=== PATIENT | female | born 1980 | race Caucasian/White ===

== ENCOUNTER 2019-05-09 19:37 | Emergency (ER) | payer SELFPAY ==
--- OUTSIDE RECORDS SUMMARY | 2019-05-09 19:38 | XMS REPORT ---
:1980 [facility] Address [address] [place] [address] Dr. Grider [address] [place] [id number] Care Team Providers Name Role Phone Unavailable Unavailable Unavailable Problems This patient has no known problems. Allergies, Adverse Reactions, Alerts This patient has no known allergies or adverse reactions. Medications This patient has no known medications.
--- NOTE | 2019-05-09 20:31 | RAD REPORT ---
EXAM DESCRIPTION: RAD - Chest Single View - 05/09/2019 8:25 pm CLINICAL HISTORY: CHEST PAIN Chest pain. COMPARISON: <Comparisons> FINDINGS: Portable technique limits examination quality. The lungs are grossly clear. The heart is normal in size. No displaced fractures. IMPRESSION: No acute intrathoracic process suspected.
[2019-05-09 20:34] LABS: Absolute Lymphocytes (CBC) 3.4 K/uL (0.7-4.9); Basophils % 0.7 % (0-1.3); Eosinophils % 0.7 % (0-4.4); Hematocrit 40.2 % (36.0-45.0); Lymphocytes % 34.6 % (15.3-44.8); MPV 7.3 fL (7.6-11.3)
[2019-05-09 20:46] LABS: BUN Blood Urea Nitrogen 10 mg/dL (7-18); Bicarbonate 25 mmol/L (21-32); Glucose Level 98 mg/dL (74-106); Potassium 3.4 mmol/L (3.5-5.1); Sodium Level 140 mmol/L (136-145); Troponin (Emerg Dept Use Only) < 0.02 ng/mL (0.0-0.045)
--- NOTE | 2019-05-09 21:05 | ER ---
Nurse's Notes [facility] Name: Alida Dupree Age: 39 yrs Sex: Female : 1980 Arrival Date: 05/09/2019 Time: 19:37 Bed 15 Private MD: Diagnosis: Chest pain, unspecified;Palpitations Presentation: 05/09 19:46 Presenting complaint: Patient states: epigastric and chest pain with SOB since Monday. ak1 pt stated she was seen at [facility] ER Monday and discharged. Transition of care: patient was not received from another setting of care. Onset of symptoms is unknown. Risk Assessment: Do you want to hurt yourself or someone else? Patient reports no desire to harm self or others. Initial Sepsis Screen: Does the patient meet any 2 criteria? No. Patient's initial sepsis screen is negative. Does the patient have a suspected source of infection? No. Patient's initial sepsis screen is negative. Care prior to arrival: None. 19:46 Method Of Arrival: Ambulatory ak1 19:46 Acuity: REEMA 3 ak1 Triage Assessment: 19:48 General: Appears in no apparent distress. Behavior is calm, cooperative. Pain: ak1 Complains of pain in xyphoid area and mid-sternal area. 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 - Social history:: Smoking status: Patient uses tobacco products, smokes one pack cigarettes per day. - Ebola Screening: : No symptoms or risks identified at this time. Screenin:20 Abuse screen: Denies threats or abuse. Denies injuries from another. Nutritional aj screening: No deficits noted. Tuberculosis screening: No symptoms or risk factors identified. Fall Risk None identified. Assessment: 20:20 General: Appears in no apparent distress. comfortable, Behavior is calm, cooperative, aj appropriate for age. Pain: Complains of pain in mid-sternal area Pain does not radiate. Pain began gradually. Cardiovascular: Reports chest pain, Capillary refill < 3 seconds in bilateral fingers Patient's skin is warm and dry. Respiratory: Airway is patent Respiratory effort is even, unlabored, Respiratory pattern is regular, symmetrical. Derm: Skin is intact, is healthy with good turgor, Skin is pink, warm \T\ dry. normal. Vital Signs: 19:48 BP 148 / 90; Pulse 81; Resp 16; Temp 98.2; Pulse Ox 100% on R/A; Weight 72.57 kg (R); ak1 Height 5 ft. 2 in. (157.48 cm) (R); Pain 4/10; 20:20 BP 137 / 91; Pulse 75; Resp 16; Pulse Ox 99% on R/A; aj 19:48 Body Mass Index 29.26 (72.57 kg, 157.48 cm) ak1 ED Course: 19:37 Patient arrived in ED. rg4 19:47 Triage completed. ak1 19:48 Arm band placed on Patient placed in an exam room, on a stretcher, on radiation monitor, ak1 on pulse oximetry, Patient notified of wait time. EKG completed in triage. Results shown to MD. 19:54 Kell Flower, RN is Primary Nurse. aj 19:54 Abelino Sainz MD is Attending Physician. gs 20:20 Patient has correct armband on for positive identification. Pulse ox on. NIBP on. aj 20:20 Inserted saline lock: 20 gauge in right antecubital area, using aseptic technique. aj Blood collected. 20:26 XRAY Chest (1 view) In Process Unspecified. EDMS 20:59 Toribio Fisher MD is Referral Physician. Administered Medications: No medications were administered Outcome: 21:04 Discharge ordered by . gs 21:31 Patient left the ED. aj Signatures: Dispatcher [employer] EDMS Kell Flower RN RN aj Krenek, Amber RN Emerita Barnhart [facility] Abelino Sainz MD MD
--- NOTE | 2019-05-09 21:05 | EDPHYS ---
Physician Documentation [facility] Name: Alida Dupree Age: 39 yrs Sex: Female : 1980 Arrival Date: 05/09/2019 Time: 19:37 Bed 15 Private MD: ED Physician Abelino Sainz HPI: 05/09 20:51 This 39 yrs old Female presents to ER via Ambulatory with complaints of Chest gs Pain. 20:51 The patient or guardian reports chest pain that is located primarily in the anterior gs chest wall. Onset: yesterday. The pain does not radiate. Associated signs and symptoms: Pertinent positives: shortness of breath. The chest pain is described as a heaviness. Duration: The patient or guardian reports multiple episodes, that are intermittent, that wax and wane, with no pattern, the episodes last approximately 5 minute(s). Modifying factors: The symptoms are alleviated by nothing. the symptoms are aggravated by nothing. Severity of pain: At its worst the pain was moderate in the emergency department the pain has resolved. The patient has experienced similar episodes in the past, a few times. The patient has been recently seen by a physician: outside ed. also main issue this occurs when having palpitations, says fast heart rate up to 130's. REGISTERED NURSE HH CASE MANAGER: 19:48 LMP N/A - depo injections ak1 Historical: - Allergies: 19:48 Percocet; ak1 - Home Meds: 19:48 Synthroid Oral [Active]; ak1 - PMHx: 19:48 Endometrosis; Hypothyroidism; ak1 - PSHx: 19:48 ; left shoulder sx 02/2019; ak1 - Immunization history:: Adult Immunizations unknown. - Social history:: Smoking status: Patient uses tobacco products, smokes one pack cigarettes per day. - Ebola Screening: : No symptoms or risks identified at this time. ROS: 20:51 All other systems are negative. gs Exam: 20:51 Head/Face: Normocephalic, atraumatic. Eyes: Pupils equal round and reactive to light, gs extra-ocular motions intact. Lids and lashes normal. Conjunctiva and sclera are non-icteric and not injected. Cornea within normal limits. Periorbital areas with no swelling, redness, or edema. ENT: Nares patent. No nasal discharge, no septal abnormalities noted. Tympanic membranes are normal and external auditory canals are clear. Oropharynx with no redness, swelling, or masses, exudates, or evidence of obstruction, uvula midline. Mucous membranes moist. Neck: Trachea midline, no thyromegaly or masses palpated, and no cervical lymphadenopathy. Supple, full range of motion without nuchal rigidity, or vertebral point tenderness. No Meningismus. Chest/axilla: Normal chest wall appearance and motion. Nontender with no deformity. No lesions are appreciated. Cardiovascular: Regular rate and rhythm with a normal S1 and S2. No gallops, murmurs, or rubs. Normal PMI, no JVD. No pulse deficits. Respiratory: Lungs have equal breath sounds bilaterally, clear to auscultation and percussion. No rales, rhonchi or wheezes noted. No increased work of breathing, no retractions or nasal flaring. Abdomen/GI: Soft, non-tender, with normal bowel sounds. No distension or tympany. No guarding or rebound. No evidence of tenderness throughout. Back: No spinal tenderness. No costovertebral tenderness. Full range of motion. Skin: Warm, dry with normal turgor. Normal color with no rashes, no lesions, and no evidence of cellulitis. MS/ Extremity: Pulses equal, no cyanosis. Neurovascular intact. Full, normal range of motion. Neuro: Awake and alert, GCS 15, oriented to person, place, time, and situation. Cranial nerves II-XII grossly intact. Motor strength 5/5 in all extremities. Sensory grossly intact. Cerebellar exam normal. Normal gait. 20:51 Constitutional: The patient appears alert, awake. 20:51 ECG was reviewed by the Attending Physician. Vital Signs: 19:48 BP 148 / 90; Pulse 81; Resp 16; Temp 98.2; Pulse Ox 100% on R/A; Weight 72.57 kg (R); ak1 Height 5 ft. 2 in. (157.48 cm) (R); Pain 4/10; 20:20 BP 137 / 91; Pulse 75; Resp 16; Pulse Ox 99% on R/A; aj 19:48 Body Mass Index 29.26 (72.57 kg, 157.48 cm) ak1 MDM: 20:00 Patient medically screened. gs 20:51 Differential diagnosis: abnormal EKG, coronary artery disease chest wall pain, gs afib,aflutter,s tach. explained will need to follow up with cards for possible telemonitor. 21:07 HEART Score: History: Slightly Suspicious (0), ECG: Normal (0), Age: < or = 45 years gs (0), Risk Factors: 1 or 2 risk factors (1), Troponin: < or = 1 x Normal Limit (0). Data reviewed: vital signs, nurses notes, lab test result(s), EKG, radiologic studies. Counseling: I had a detailed discussion with the patient and/or guardian regarding: the historical points, exam findings, and any diagnostic results supporting the discharge/admit diagnosis, the presence of at least one elevated blood pressure reading (>120/80) during this emergency department visit. Response to treatment: the patient's symptoms have resolved after treatment, the patient's condition has returned to base line. Special discussion: I have referred the patient to see his PCP for further evaluation of high blood pressure. 05/09 19:58 Order name: Basic Metabolic Panel; Complete Time: 20:50 05/09 19:58 Order name: CBC with Diff; Complete Time: 20:50 05/09 19:58 Order name: Troponin (emerg Dept Use Only); Complete Time: 20:50 05/09 19:58 Order name: XRAY Chest (1 view); Complete Time: 20:36 05/09 21:04 Order name: TSH 05/09 21:31 Order name: T4 Free [facility] 05/09 19:58 Order name: EKG; Complete Time: 19:59 05/09 19:58 Order name: Cardiac monitoring; Complete Time: 20:22 05/09 19:58 Order name: EKG - Nurse/Tech; Complete Time: 20:22 05/09 19:58 Order name: IV Saline Lock; Complete Time: 20:22 05/09 19:58 Order name: Labs collected and sent; Complete Time: 20:22 05/09 19:58 Order name: O2 Per Protocol; Complete Time: 20:23 05/09 19:58 Order name: O2 Sat Monitoring; Complete Time: 20:23 gs EC:51 Rate is 83 beats/min. Rhythm is regular. MT interval is normal. QRS interval is normal. gs T waves are Normal. No ST changes noted. Clinical impression: Normal ECG. Interpreted by me. Administered Medications: No medications were administered Disposition: 05/09/19 21:04 Discharged to Home. Impression: Chest pain, unspecified, Palpitations. - Condition is Stable. - Discharge Instructions: Nonspecific Chest Pain, Palpitations, Managing Your Hypertension. - Medication Reconciliation Form, Thank You Letter, Antibiotic Education, Prescription Opioid Use form. - Follow up: Toribio Fisher MD; When: 1 - 2 days; Reason: Re-evaluation by your physician. Signatures: Dispatcher [employer] EDKell Jeffries RN RN aj Kathi Nair RN RN ak1 Abelino Sainz MD MD gs Corrections: (The following items were deleted from the chart) 21:31 21:04 05/09/2019 21:04 Discharged to Home. Impression: Chest pain, unspecified; aj Palpitations. Condition is Stable. Forms are Medication Reconciliation Form, Thank You Letter, Antibiotic Education, Prescription Opioid Use. Follow up: Toribio Fisher; When: 1 - 2 days; Reason: Re-evaluation by your physician. gs
[2019-05-09 21:30] LABS: Thyroid Stimulating Hormone 4.51 uIU/mL (0.360-3.740)
--- NOTE | 2019-05-10 07:34 | EKG ---
Test Date: 2019-05-09 Test Time: 19:46:55 Diet Consultant: AG3 MEASUREMENT RESULTS: Intervals: Rate: 83 DC: 156 QRSD: 74 QT: 352 QTc: 413 [place]: P: 42 DC: 156 QRS: 56 T: 42 INTERPRETIVE STATEMENTS: Normal sinus rhythm Normal ECG Compared to ECG 08/27/2015 19:07:44 Sinus bradycardia no longer present Electronically Signed On 05-10-19 07:33:54 CDT by Doug Olivares
== END 2019-05-09 21:31 | disposition home or self-care (01) ==
LOC: ER 19:37
DX: R00.2 Palpitations (principal); E03.9 Hypothyroidism, unspecified; F17.210 Nicotine dependence, cigarettes, uncomplicated
CPT/HCPCS: 36415; 71045; 80048; 84439; 84443; 84484; 85025; 93005; 99284

== ENCOUNTER 2022-03-02 22:24 | Emergency (ER) | payer OTHER, SELFPAY ==
--- OUTSIDE RECORDS SUMMARY | 2022-03-02 22:28 | XMS REPORT | Continuity of Care Document ---
:1980 Author Organization [facility] t Address [address] [place] [address] Dr. [address] [place] [address] Care Team Providers Name Role Phone PCP, DOES NOT HAVE A Primary Care Physician Unavailable Melinda GALAN Attending Clinician Unavailable Daniella Zamora MD Attending Clinician Codey HARRIS Attending Clinician Jl Villegas Attending Clinician Maile JUDD Attending Clinician Unavailable Binta HARRIS S Attending Clinician Leona PRESCOTT Attending Clinician Codey HARRIS Admitting Clinician Maile JUDD Admitting Clinician Unavailable Payers Payer Name Policy Type Policy Number Effective Date Expiration Date S ourmayelin Advance Directives Directive Decision Effective Termination Comments Source Date Date Healthcare Agents on N/A [facility] ersity FileNameRelationshipHealthcare [facility] Agent Medical RelationshipCommunicationMer[facility] Hospital[facility] [phone] (Home) Problems Condition Condition Condition Status Onset Resolution Last Treating Co mments Source Name Details Category Date Date Treatment Clinician Date Chest pain Chest pain Disease Active 2020-10 U nivers 0-05 ity of 00:00: [address] Abdominal Abdominal Disease Active Uni vers pain pain 6-07 ity of 00:00: [address] Obesity Obesity Disease Active Univers (BMI (BMI 6-07 ity of 30-39.9) 30-39.9) 00:00: [place] 00 Medical Branch Pelvic Pelvic Disease Active 2016-10 Univers pain pain 0-10 ity of 00:00: Medical Branch Well woman Well woman Disease Active U nivers exam exam 7 ity of 00:00: Medical Branch Other Other Disease Active Univers general general 7- [place] of counseling counseling [place] and advice and advice 00 Wv dical for for Branch contracept contracept lon lon management management Irregular Irregular Disease Active Uni vers menstrual menstrual 7-19 ity of cycle cycle 00:00: [place] [facility] BV BV Disease Active Univers (bacterial (bacterial 7-19 it y of vaginosis) vaginosis) [place] Acute Acute Disease Active Univers tonsilliti tonsilliti -19 it y of s s 00:00: Medical Branch Tubal Tubal Disease Active Univers ligation ligation 07 ity of status status 00:00: Medical Branch History of History of Disease Active U nivers stroke stroke 07 ity of 00:00: Medical Branch Thyroid Thyroid Disease Active Univers disease disease 03-05 ity of 00:00: Medical Branch Overweight Overweight Disease Active Overview : Univers 03-05 Formattin ity of 00:00: g of this 00 note Medical might be Branch different from the original. ICD10 Diagnosis Term Manager Qa Utility Tobacco Tobacco Disease Active Univers use use 07 ity of disorder disorder 00:00: Medical Branch Tubal Tubal Disease Active Univers ligation ligation 5-07 ity of status status 00:00: Medical Branch Allergies, Adverse Reactions, Alerts Allergy Allergy Status Severity Reaction(s) Onset Inactive Treating Comm ents Source Name Type Date Date Clinician SULFA Drug Active N/V Univers (SULFONA Class 5-17 ity of MIDE 00:00: [place] ANTIBIOT 00 Medical ICS) Branch Sulfa Propensi Active Nausea Univers (Sulfona ty to and/or 5-17 ity of mide adverse Vomiting 00:00: [place] Antibiot reaction 00 Medica l ics) s Branch ACETAMIN DRUG Active Other-Cmnt 2018-10 Univ ers OPHEN INGREDI 1-30 ity of 00:00: [place] 00 Medical Branch Acetamin Propensi Active Other - See 2018-10 Makes U nivers ophen ty to comments 30 liver ity of adverse 00:00: enzymes [place] reaction 00 elevate Medical s Branch DEXTROAM DRUG Active Hives 2017-10 Univers PHETAMIN 0-20 ity of E-AMPHET 00:00: [place] AMINE 00 Medical Branch Dextroam Propensi Active Hives 2017-10 Univer s phetamin ty to 0-20 ity of e-Amphet adverse 00:00: [place] amine reaction 00 Medical s Branch OXYCODON DRUG Active ITCHING 2008-10 Univers E-ACETAM 1-19 ity of INOPHEN 00:00: [place] 00 Medical Branch Oxycodon Propensi Active Itching 2008-10 Unive rs e-Acetam ty to 1-19 ity of inophen adverse 00:00: [place] reaction 00 Medical s Branch Social History Social Habit Start Date Stop Date Quantity Comments Source Exposure to Not sure [facility] SARS-CoV-2 (event) [facility] History of tobacco Cigarette Smoker University of use [facility] Alcohol intake 2021-08-03 2021-08-03 Current University of 00:00:00 00:00:00 non-drinker of [facility] alcohol Branch (finding) Cigarette 2015-03-04 2015-03-04 University of pack-years 00:00:00 00:00:00 [facility] Tobacco use and 2015-03-04 2015-03-04 Never used Universit y of exposure 00:00:00 00:00:00 [facility] Cigarettes smoked 2015-03-04 2015-03-04 Univers ity of current (pack per 00:00:00 00:00:00 ) - Reported Branch Sex [birth year] At [birth year] Universit y of 00:00:00 00:00:00 [facility] Smoking Status Start Date Stop Date Source Current every day smoker 2015-03-04 00:00:00 Uni versity of [facility] Medications Ordered Filled Start Stop Current Ordering Indication Dosage Frequency Signature Comments Components Source Medication Medication Date Date Medication? Clinician (SIG) Name Name levothyroxi 2020-10 Yes 112ug 112 mcg, U nivers ne 0-06 Oral, ity of (SYNTHROID) 11:00: QAM-0600, [place] tablet 112 00 First dose Med ical mcg on Mon08/04/21 at 0600, Until Discontinu ed, Routine cholecalcif 2020-10 Yes [id number] 2000U Take 2 Univers manisha, 0-06 tablets by ity of vitamin D3, 00:00: mouth [place] 25 mcg 00 daily. Medical (1,000 Branch unit) tablet ibuprofen 2020-10 Yes 800mg 800 mg, Univ ers (IBU) 0-05 Oral, ity of tablet 800 17:33: Q8HPRN, [place] mg 07 Starting Medical on Mon08/03/21 at 1233, Until Discontinu ed, Routine, Pain (scale 4-6) buPROPion 2020-10 Yes 200mg Take 200 Uni vers (WELLBUTRIN 0-05 mg by ity of SR) 200 mg 17:11: mouth [place] 12 hr 59 daily. Medical tablet Branch zinc 2020-10 Yes 220mg 220 mg, Univers sulfate 0-05 Oral, ity of (ORAZINC) 14:00: DAILY, [place] capsule 220 00 First dose Me dical mg on Mon08/03/21 at 0900, Until Discontinu ed, Routine cholecalcif 2020-10 Yes 1000U 1,000 Univ ers manisha 0-05 Units, ity of (vitamin 14:00: Oral, [place] D3) tablet 00 DAILY, Medical 1,000 Units First dose Br anch on Mon08/03/21 at 0900, Until Discontinu ed, Routine enoxaparin 2020-10 Yes 40mg 40 mg, Unive rs (LOVENOX) 0-05 Subcutaneo ity of injection 14:00: us, DAILY, [place] 40 mg 00 First dose Medical on Mon08/03/21 at 0900, Until Discontinu ed, Routine ascorbic 2020-10 Yes 500mg 500 mg, Unive rs acid 0-05 Oral, BID, ity of (vitamin C) 13:00: First dose [place] (VITAMIN C) [facility] at Bra nch mg 0800, Until Discontinu ed, Routine acetaminoph 2020-10 202- No 1{tbl} Take 1 U nivers en-codeine 0-05 10-05 tablet by ity of (TYLENOL-CO 11:46: 00:00 [place] DEINE #4) 34 :00 every 4 Medical 300-60 mg (four) Branch tablet hours as needed for Pain. aspirin 2020-10- No 325mg 325 mg, Unive rs tablet 325 0-05 10-05 Oral, ity of mg 10:30: 10:30 ONCE, 1 [place] 00 :00 dose, On Medical Mon08/03/21 at 0530, STAT ondansetron 2020-10- No 4mg 4 mg, Slow Univers (ZOFRAN 0-05 10-05 IV Push, ity of (PF)) 10:30: 09:42 ONCE, 1 [place] injection 4 00 :00 dose, On Medi andres mg 08/03/21 at 0530, TRACEY FENTanyl PF 2020-10- No 50ug 50 mcg, Un candy (SUBLIMAZE 0-05 10-05 Slow IV ity o f (PF)) 10:30: 09:43 Push, [place] injection 00 :00 ONCE, 1 Medical 50 mcg dose, On Branch Mon08/03/21 at 0530, Routine ketorolac 2020-10- No 15mg 15 mg, Unive rs (TORADOL) 0-05 10-05 Slow IV ity of injection 09:58: 17:33 Push, [place] 15 mg 21 :21 Q6HPRN, 4 Medical doses, Branch Starting on Mon08/03/21 at 0458, Until Mon08/03/21 at 1233, Routine, Pain (scale 4-6), Pain (scale 7-10)
F aculty member approving Restricted medication : JRIONWENERI nitroglycer 2020-10 Yes .4mg 0.4 mg, Uni vers in 0-05 Sublingual ity of (NITROSTAT) 09:55: , Q5MIN [place] sublingual 39 PRN, Medical tablet 0.4 Starting Branc h mg on Mon08/03/21 at 0455, Until Discontinu ed, Routine, Chest pain metoprolol 2020-10 Yes [id number] 25mg Take 1 U nivers succinate 0-05 tablet by ity o f XL 25 mg 24 00:00: mouth [place] hr tablet 00 daily. Medical Branch predniSONE 2019-10- No 60mg 60 mg, Univ ers (DELTASONE) 0- 10-07 Oral, ity of tablet 60 05:30: 04:47 ONCE, 1 [place] mg 00 :00 dose, [facility] Medical 08/05/20 at Branch 0030, TRACEY ketorolac 2019-10- No 30mg 30 mg, Unive rs (TORADOL) 0- 10-07 Intramuscu ity of injection 05:30: 04:47 lar, ONCE, [place] 30 mg 00 :00 1 dose, Medical [facility] Branch 08/05/20 at 0030, TRACEY
Fa culty member approving Restricted medication : PIETRO LIVE Jl amoxicillin 2019-10- No [id number] 1{tbl} Take 1 Univers -clavulanat 0-06 10-14 tablet by it y of e 875-125 00:00: 04:59 mouth [place] mg per 00 :00 every 12 Medical tablet (twelve) Branch hours for 7 days. predniSONE 2019-10- No [id number] 20mg Take 1 Univers 20 mg 0 10-11 tablet by ity of tablet 00:00: 04:59 mouth 2 [place] 00 :00 (two) Medical times Branch daily for 4 days. KCL 2019- No 40meq 40 mEq, Univers (KLOR-CON 04-11 Oral, ity of M20) tablet 10:15: 09:12 ONCE, 1 [place] 40 mEq 00 :00 dose, Sat Medical 04/11/20 at Branch 0515, TRACEY NaCl 0.9% 2019- No 500mL at 999 Univ ers (NS) bolus 04-11 mL/hr, 500 it y of infusion 07:15: 08:54 mL, IV [place] 500 mL 00 :00 Infusion, Medical ONCE, 1 Branch dose, 04/11/20 at 0215, STAT ondansetron 2019- No 4mg 4 mg, Slow Univers (ZOFRAN 04-11 IV Push, ity of (PF)) 07:15: 06:33 ONCE, 1 [place] injection 4 00 :00 dose, Sat Med ical mg 04/11/20 at Branch 0215, TRACEY morpHINE 2019- No 4mg 4 mg, Slow Un candy injection 4 13 06 IV Push, ity of mg 07:15: 06:33 ONCE, 1 [place] 00 :00 dose, Sat Medical 04/11/20 at Branch 0215, STAT iohexol 2019-0 2020- No 120mL 120 mL, Unive rs (OMNIPAQUE 04-11 Intravenou it y of 350 07:00: 07:00 s, ONCE, 1 [place] BULK-150 00 :00 dose, Sat Medica l mL) 04/11/20 at Branch injection 0200, 120 mL Routine dicyclomine 2020-0 Yes [id number] 20mg Take 1 Univers 20 mg 6-13 tablet by ity of tablet 00:00: mouth [place] 00 every 6 Medical (six) Branch hours as needed for Abdominal pain. Nitrofurant 2020-0 Yes [id number] 100mg Take 1 Univers oin&Nit. 6-13 capsule by ity o f Macrocryst 00:00: mouth 2 [place] (MACROBID) 00 (two) Medical 100 mg times Branch capsule daily. ondansetron 2020-0 Yes [id number] 4mg Take 1 Univers (ZOFRAN) 4 6-13 tablet by ity of mg tablet 00:00: mouth [place] 00 every 8 Medical (eight) Branch hours as needed for Nausea and Vomiting (N/V). dicyclomine 2020-0 Yes [id number] 20mg Take 1 Univers 20 mg 6-13 tablet by ity of tablet 00:00: mouth [place] 00 every 6 Medical (six) Branch hours as needed for Abdominal pain. Nitrofurant 2020-0 Yes [id number] 100mg Take 1 Univers oin&Nit. 6-13 capsule by ity o f Macrocryst 00:00: mouth 2 [place] (MACROBID) 00 (two) Medical 100 mg times Branch capsule daily. ondansetron 2020-0 Yes [id number] 4mg Take 1 Univers (ZOFRAN) 4 6-13 tablet by ity of mg tablet 00:00: mouth [place] 00 every 8 Medical (eight) Branch hours as needed for Nausea and Vomiting (N/V). dicyclomine 2020-0 2020- No [id number] 20mg Take 1 Univers 20 mg 6-13 10-05 tablet by ity of tablet 00:00: 00:00 mouth [place] 00 :00 every 6 Medical (six) Branch hours as needed for Abdominal pain. Nitrofurant No [id number] 100mg Take 1 Univers oin&Nit. 04-11-05 capsule by ity of Macrocryst 00:00: 00:00 mouth 2 [place] (MACROBID) 00 :00 (two) Medical 100 mg times Branch capsule daily. ondansetron No [id number] 4mg Take 1 Univers (ZOFRAN) 4 04-11-05 tablet by ity of mg tablet 00:00: 00:00 mouth [place] 00 :00 every 8 Medical (eight) Branch hours as needed for Nausea and Vomiting (N/V). penicillin No 500mg 500 mg, Un candy v potassium 5-17 05-17 Oral, ity of (PEN-VEE K) 07:00: 06:08 ONCE, 1 [place] tablet 500 00 :00 dose, Sun Medi andres mg 03/15/20 at Branch 0200, TRACEY
Re ason for Anti-Infec tive: Documented Infection< br>Documen vivian Infection Site: HEENT
D uration of Therapy: Other (see Comments) penicillin No [id number] 500mg Take 1 Univers v potassium 5-17 05-25 tablet by it y of 500 mg 00:00: 04:59 mouth 4 [place] tablet 00 :00 (four) Medical times Branch daily for 7 days. KCL 20 mEq 2018-10 Yes [id number] 20meq Take 1 Univers tablet 2-01 tablet by ity of 00:00: mouth [place] 00 daily. Medical Branch pantoprazol 2018-10 Yes [id number] 40mg Take 1 Univers e 2-01 tablet by ity of (PROTONIX) 00:00: mouth [place] 40 mg EC 00 daily. Medical tablet Branch KCL 20 mEq 2018-10 Yes [id number] 20meq Take 1 Univers tablet 2-01 tablet by ity of 00:00: mouth [place] 00 daily. Medical Branch pantoprazol 2018-10 Yes [id number] 40mg Take 1 Univers e 2-01 tablet by ity of (PROTONIX) 00:00: mouth [place] 40 mg EC 00 daily. Medical tablet Branch KCL 20 mEq 2018-10 Yes [id number] 20meq Take 1 Univers tablet 2-01 tablet by ity of 00:00: mouth [place] 00 daily. Medical Branch pantoprazol 2018-10 Yes [id number] 40mg Take 1 Univers e 2-01 tablet by ity of (PROTONIX) 00:00: mouth [place] 40 mg EC 00 daily. Medical tablet Branch KCL 20 mEq 2018-10- No [id number] 20meq Take 1 Univers tablet 2-01 10-05 tablet by ity of 00:00: 00:00 mouth [place] 00 :00 daily. Medical Branch pantoprazol 2018-10- No [id number] 40mg Take 1 Univers e 2-01 10-05 tablet by ity of (PROTONIX) 00:00: 00:00 mouth [place] 40 mg EC 00 :00 daily. Medical tablet Branch ondansetron Yes [id number] 4mg Take 1 Univers (ZOFRAN 7-09 tablet by ity of ODT) 4 mg 00:00: mouth [place] disintegrat 00 every 8 Medic al ing tablet (eight) Branch hours as needed for Nausea and Vomiting (N/V). ondansetron Yes [id number] 4mg Take 1 Univers (ZOFRAN 7-09 tablet by ity of ODT) 4 mg 00:00: mouth [place] disintegrat 00 every 8 Medic al ing tablet (eight) Branch hours as needed for Nausea and Vomiting (N/V). ondansetron Yes [id number] 4mg Take 1 Univers (ZOFRAN 7-09 tablet by ity of ODT) 4 mg 00:00: mouth [place] disintegrat 00 every 8 Medic al ing tablet (eight) Branch hours as needed for Nausea and Vomiting (N/V). ondansetron Yes [id number] 4mg Take 1 Univers (ZOFRAN 7-09 tablet by ity of ODT) 4 mg 00:00: mouth [place] disintegrat 00 every 8 Medic al ing tablet (eight) Branch hours as needed for Nausea and Vomiting (N/V). ondansetron 2020- No [id number] 4mg Take 1 Univers (ZOFRAN 7-09 10-05 tablet by ity of ODT) 4 mg 00:00: 00:00 mouth [place] disintegrat 00 :00 every 8 Medic al ing tablet (eight) Branch hours as needed for Nausea and Vomiting (N/V). acetaminoph 2019-0 Yes 1{tbl} Take 1 Un candy en-codeine 6-09 tablet by ity of (TYLENOL-CO 00:10: mouth [place] DEINE #4) 28 every 4 Medical 300-60 mg (four) Branch tablet hours as needed for Pain. acetaminoph 2019-0 Yes 1{tbl} Take 1 Un candy en-codeine 6-09 tablet by ity of (TYLENOL-CO 00:10: mouth [place] DEINE #4) 28 every 4 Medical 300-60 mg (four) Branch tablet hours as needed for Pain. acetaminoph [id number] Yes 1{tbl} Take 1 Un candy en-codeine 6-09 tablet by ity of (TYLENOL-CO 00:10: mouth [place] DEINE #4) 28 every 4 Medical 300-60 mg (four) Branch tablet hours as needed for Pain. acetaminoph 2019 Yes 1{tbl} Take 1 Un candy en-codeine 6-09 tablet by ity of (TYLENOL-CO 00:10: mouth [place] DEINE #4) 28 every 4 Medical 300-60 mg (four) Branch tablet hours as needed for Pain. pantoprazol Yes [id number] 40mg Take 1 Univers e 40 mg EC 6-08 tablet by ity of tablet 00:00: mouth [place] 00 daily. Medical Branch pantoprazol Yes [id number] 40mg Take 1 Univers e 40 mg EC 6-08 tablet by ity of tablet 00:00: mouth [place] 00 daily. Medical Branch pantoprazol 0 Yes [id number] 40mg Take 1 Univers e 40 mg EC 6-08 tablet by ity of tablet 00:00: mouth [place] 00 daily. Medical Branch pantoprazol Yes [id number] 40mg Take 1 Univers e 40 mg EC 6-08 tablet by ity of tablet 00:00: mouth [place] 00 daily. Medical Branch pantoprazol 2020- No [id number] 40mg Take 1 Univers e 40 mg EC 6-08 10-05 tablet by ity of tablet 00:00: 00:00 mouth [place] 00 :00 daily. Medical Branch medroxyPROG 0 Yes [id number] 150mg Univers ESTERone 4-15 ity of (DEPO-PROVE 14:15: [place] RA) 00 Medical injection Branch 150 mg medroxyPROG 2019- Yes [id number] 150mg Univers ESTERone 4-15 ity of (DEPO-PROVE 14:15: [place] RA) 00 Medical injection Branch 150 mg medroxyPROG 2019- Yes [id number] 150mg U nivers ESTERone 4-15 ity of (DEPO-PROVE 14:15: [place] RA) 00 Medical injection Branch 150 mg medroxyPROG 2019- Yes [id number] 150mg Univers ESTERone 4-15 ity of (DEPO-PROVE 14:15: [place] RA) 00 Medical injection Branch 150 mg medroxyPROG 2019- Yes [id number] 150mg Univers ESTERone 4-15 ity of (DEPO-PROVE 14:15: [place] RA) 00 Medical injection Branch 150 mg cyclobenzap 2017- Yes 5mg Take 1 Univ ers rine 5 mg 0-20 tablet by ity o f tablet 00:00: mouth 3 (three) Medical times Branch daily. dicyclomine 2018- Yes 20mg Take 1 Univ ers (BENTYL) 20 0-20 tablet by ity of mg tablet 00:00: mouth (four) Medical times Branch daily. cyclobenzap 2017- Yes 5mg Take 1 Univ ers rine 5 mg 0-20 tablet by ity o f tablet 00:00: mouth 3 (three) Medical times Branch daily. dicyclomine 2017- Yes 20mg Take 1 Univ ers (BENTYL) 20 0-20 tablet by ity of mg tablet 00:00: mouth (four) Medical times Branch daily. cyclobenzap 2018- Yes 5mg Take 1 Univ ers rine 5 mg 0-20 tablet by ity o f tablet 00:00: mouth 3 (three) Medical times Branch daily. dicyclomine 2018-1 Yes 20mg Take 1 Univ ers (BENTYL) 20 0-20 tablet by ity of mg tablet 00:00: mouth 4 (four) Medical times Branch daily. cyclobenzap 2017- Yes 5mg Take 1 Univ ers rine 5 mg 0-20 tablet by ity o f tablet 00:00: mouth 3 (three) Medical times Branch daily. dicyclomine 2018-1 Yes 20mg Take 1 Univ ers (BENTYL) 20 0-20 tablet by ity of mg tablet 00:00: mouth 4 [place] 00 (four) Medical times Branch daily. cyclobenzap 2017-10- No 5mg Take 1 Uni vers rine 5 mg 0-20 10-05 tablet by ity of tablet 00:00: 00:00 mouth 3 [place] 00 :00 (three) Medical times Branch daily. dicyclomine 2017-10 No 20mg Take 1 Uni vers (BENTYL) 20 0-20 10-05 tablet by it y of mg tablet 00:00: 00:00 mouth 4 [place] 00 :00 (four) Medical times Branch daily. levothyroxi Yes [id number] 100ug Take 1 Univers ne 100 mcg 8-11 tablet by ity of tablet 00:00: mouth [place] 00 every Medical morning. Branch levothyroxi Yes [id number] 100ug Take 1 Univers ne 100 mcg 8-11 tablet by ity of tablet 00:00: mouth [place] 00 every Medical morning. Branch levothyroxi Yes [id number] 100ug Take 1 Univers ne 100 mcg 8-11 tablet by ity of tablet 00:00: mouth [place] 00 every Medical morning. Branch levothyroxi Yes [id number] 100ug Take 1 Univers ne 100 mcg 8-11 tablet by ity of tablet 00:00: mouth [place] 00 every Medical morning. Branch levothyroxi Yes [id number] 100ug Take 1 Univers ne 100 mcg 8-11 tablet by ity of tablet 00:00: mouth [place] 00 every Medical morning. Branch Immunizations Ordered Filled Immunization Date Status Comments [facility] Immunization Name Name Pneumococcal 2019-04-06 Completed University o f Polysaccharide, 00:00:00 [place] Med ical PPSV23 (PNEUMOVAX) Branch Pneumococcal 2019-04-06 Completed University o f Polysaccharide, 00:00:00 [place] Med ical PPSV23 (PNEUMOVAX) Branch Pneumococcal 2019-04-06 Completed University o f Polysaccharide, 00:00:00 [place] Med ical PPSV23 (PNEUMOVAX) Branch Pneumococcal 2019-04-06 Completed University o f Polysaccharide, 00:00:00 [place] Med ical PPSV23 (PNEUMOVAX) Branch Pneumococcal 2019-04-06 Completed [place] o f Polysaccharide, 00:00:00 [place] Med ical PPSV23 (PNEUMOVAX) Branch TDAP 2010-03-04 Completed University of 00:00:00 [place] [facility] TDAP 2010-03-04 Completed University of 00:00:00 [place] [facility] Tdap 2010-03-04 Completed University of 00:00:00 [place] [facility] Tdap 2010-03-04 Completed University of 00:00:00 [place] [facility] Tdap 2010-03-04 Completed University of 00:00:00 [facility] Vital Signs Vital Name Observation Time Observation Value Comments Source Systolic blood 2021-08-03 16:00:00 113 mm[Hg] Univer sity of pressure [facility] Diastolic blood 2021-08-03 16:00:00 69 mm[Hg] Unive rsity of [facility] Heart rate 2021-08-03 16:00:00 76 /min Universi ty [facility] Body temperature 2021-08-03 16:00:00 36.33 No Univ ersity of [facility] Respiratory rate 2021-08-03 16:00:00 18 /min Univ ersity of [facility] Oxygen saturation in 2021-08-03 16:00:00 96 /min University of Arterial blood by [place] [facility] Pulse oximetry Branch Body height 2021-08-03 11:12:00 157.5 cm [facility] Body weight 2021-08-03 11:12:00 74.39 kg [facility] BMI 2021-08-03 11:12:00 30.00 kg/m2 [facility] Systolic blood 2020-08-05 04:57:00 155 mm[Hg] Univer sity of pressure [facility] Diastolic blood 2020-08-05 04:57:00 94 mm[Hg] Unive rsity of pressure [facility] Heart rate 2020-08-05 04:57:00 87 /min Universi ty [facility] Respiratory rate 2020-08-05 04:57:00 16 /min Univ ersity of [facility] Oxygen saturation in 2020-08-05 04:57:00 98 /min University of Arterial blood by [place] [facility] Pulse oximetry Branch Body temperature 2020-08-05 02:51:00 37.17 No Univ ersity of [facility] Body weight 2020-08-05 02:51:00 73.029 kg Universi ty of [place] [facility] [place] BMI 2020-08-05 02:51:00 29.45 kg/m2 Universi ty of [facility] Branch Systolic blood 2020-04-11 08:00:00 112 mm[Hg] Univer sity of pressure [place] [facility] Diastolic blood 2020-04-11 08:00:00 73 mm[Hg] Unive rsity of pressure [facility] Heart rate 2020-04-11 08:00:00 68 /min Universi ty of [facility] Branch Respiratory rate 2020-04-11 08:00:00 15 /min Univ ersity of [facility] Oxygen saturation in 2020-04-11 08:00:00 96 /min University of Arterial blood by [facility] Pulse oximetry Branch BMI 2020-04-11 05:30:00 29.26 kg/m2 Universi ty of [facility] Body temperature 2020-04-11 05:30:00 36.78 No [facility] Body height 2020-04-11 05:30:00 157.5 cm Universi ty of [place] [facility] Body weight 2020-04-11 05:30:00 72.576 kg Universi ty of [place] [facility] Body height 2020-03-15 05:36:00 160 cm Universi ty of [place] [facility] Body weight 2020-03-15 05:36:00 74.844 kg Universi ty of [place] [facility] BMI 2020-03-15 05:36:00 29.23 kg/m2 Universi ty of [facility] Oxygen saturation in 2020-03-15 05:36:00 97 /min University of Arterial blood by [facility] Pulse oximetry Branch Systolic blood 2020-03-15 05:27:09 171 mm[Hg] Univer sity of pressure [facility] Branch Diastolic blood 2020-03-15 05:27:09 99 mm[Hg] Unive rsity of pressure [facility] Heart rate 2020-03-15 05:27:09 86 /min Universi ty of [facility] Body temperature 2020-03-15 05:27:09 37 No Univ ersity of [facility] Respiratory rate 2020-03-15 05:27:09 14 /min [facility] Procedure Date / Time Performing Clinician Source Performed TRANSTHORACIC ECHO (TTE) 2021-08-03 14:04:00 [facility] [place] COMPLETE Medical Branch COVID-19 (ID NOW RAPID 2021-08-03 09:27[facility] Branch TROPONIN I 2021-08-03 09:25:00 Rani Zamora [facility] THYROID STIMULATING 2021-08-03 09:25:00 Jamil Paul [facility] HORMONE [facility] Branch LIPID PANEL 2021-08-03 09:25[id number] Medical Branch CHOLESTEROL, TRIGLYCERIDES, HDL) XR CHEST 2 VW 2021-08-03 08:11:59 Noah [facility] TROPONIN I 2021-08-03 07:46:00 Noah [facility] COMP. METABOLIC PANEL 2021-08-03 07:46:00 Noah [facility] ([id number]) [facility] CBC WITH DIFF 2021-08-03 07:46:00 Noah [facility] N-TERMINAL PRO-BNP 2021-08-03 07:46:00 Rani Zamora [facility] HB ECG ROUTINE & RHYTHM 2021-08-03 07:44:21 Rani Zamora [facility] XR CHEST 1 VW 2020-08-05 04:41:39 Pietro Live [facility] EKG-12 LEAD 2020-08-05 04:27:51 Pietro Live [facility] CONSENT/REFUSAL FOR 2020-08-05 02:37:02 Doctor [facility], [facility] CT ABDOMEN PELVIS W 2020-04-11 06:58:24 Hector Judd [facility] CONTRAST [facility] LIPASE 2020-04-11 05:38:[address] [facility] COMP. METABOLIC PANEL 2020-04-11 05:38:00 Hector Judd [facility] ([id number]) Medical Branch CBC WITH DIFFERENTIAL 2020-04-11 05:38:00 Hector Judd [facility] 2020-04-11 05:38:[address] [facility] NOTICE OF PRIVACY 2020-04-11 05:21:08 [facility] CONSENT/REFUSAL FOR 2020-04-11 05:20:42 [place] [facility] [place] [facility] [place] [facility] NOTICE OF PRIVACY 2020-03-15 05:10:07 Doctor Unassigned, No [facility] [place] PRACT[facility] Name [facility] CONSENT/REFUSAL FOR 2020-03-15 05:09:47 Doctor Unassigned, No Un [facility] [place] [facility]RE[facility] Name [facility] Encounters Start End Encounter Admission Attending Care Care Encounter Source Date/Time Date/Time Type Type Clinicians Facility Department ID 2021-11-24 Outpatient [facility] [id number] 13:00:26 [id number] 2021-11-24 Outpatient [facility] [id number] 12:49:36 [id number] 2021-08-31 Emergency [facility] [id number] [facility] Emergency [facility] [id number] [facility] 2021-08-26 Emergency [facility] [id number] [facility] 2021-09-01 2021-09-01 Outpatient Jl GALAN [facility] [id number] Univers 13:30:00 13:30:00 [facility] 2021-09-01 2021-09-01 Outpatient Jl GALAN [facility] [id number] Univers 13:30:00 13:30:00 [facility] [id number] [facility] 2021-08-03 2021-08-03 Emergency Rani Zamora [facility] [id number] Univers 02:30:00 17:11:00 Neri Alegre 350.1.13.10 [facility] [place] 4.2.7.2.686 [facility] [id number] [address] 2020-08-04 2020-08-05 [facility] [id number] Univers 21:59:00 00:19:00 Pietro Adams 350.1.13.10 i [facility] [place] 4.2.7.2.686 [facility] [phone] [address] 2020-04-11 2020-04-11 Emergency X [facility] ERT [id number] Univers 00:20:23 04:17:00 [place] [facility] 2020-04-11 2020-04-11 [facility] [id number] Univers 00:20:23 04:17:00 Jordyn Maile Adams [id number] [facility] [place] 4.2.7.[address] [place] [phone] 2020-03-15 2020-03-15 [facility] [id number] Univers 00:39:56 01:14:00 Pietro Adams 350.1.13.10 i ty of [place] 4.2.7.2.[address] [place] [id number] 2019-09-28 2019-09-29 Emergency X [facility] ERT [id number] Univers 23:31:41 03:22:00 [facility] 2019-06-14 2019-06-14 [facility] [id number] Univers 00:00:00 00:00:00 Jaime HARRY 350.1.13.10 it y of CARE 4.2.7.2.686 [facility] [id number] [address] Results Test Description Test Time Test Comments Results Result Comments Source H. PYLORI (BREATH) 2022-01-29 15:33:00 Test Item Value Reference Range Interpretation Comme nts H. PYLORI (BREATH) (test code NEGATIVE NEGATIVE UNLESS OTHERWISE INDICATED, = 09831) ALL TESTING PER [facility] ATCL[facility]ICAL [facility]OLOG[facility] [address] [facility] [address] LABORATORY DIRE CTOR: SHARAD SERNA M.D. CLIA NUMBER [id number] [facility] [place]. [id number] HEMOGLOBIN [id number] 06:59:27 Test Item Value Reference Range Interpretation Comments HEMOGLOBIN A1c (test code = 23797) 5.2 % 4.2-5.6 TSH, THIRD [id number] 06:26:58 Test Item Value Reference Range Interpretation Comments TSH, THIRD GENERATION (test code 0.279 UIU/ML 0.400-4.100 L = 2821) [id number] 06:00:03 Test Item Value Reference Range Interpretation Comments LIPASE (test code = 2058) 24 U/L 13-60 [id number] 06:00:03 Test Item Value Reference Range Interpretation Comments AMYLASE (test code = 5) 32 U/L 28-100 COMPREHENSIVE METABOLIC [id number] 05:12:52 Test Item Value Reference Range Interpretation Comments GLUCOSE (test code = 92 MG/DL 70-99 2216) BUN (test code = 11 MG/DL 6-20 2207) CREATININE (test 0.60 MG/DL 0.60-1.30 code = 2214) eGFR (2020 CKD-EPI) 114 >60 (test code = 70895) ML/MIN/1.73 CALC BUN/CREAT (test 18 RATIO 6-28 code = 2235) SODIUM (test code = 143 MEQ/L 531-903 4649) POTASSIUM (test code 3.7 MEQ/L 3.5-5.4 = 2227) CHLORIDE (test code 105 MEQ/L 95-107 = 2215) CARBON DIOXIDE (test 24 MEQ/L 19-31 code = 2206) CALCIUM (test code = 9.7 MG/DL 8.5-10.5 2208) PROTEIN, TOTAL (test 7.4 G/DL 6.1-8.3 code = 2229) ALBUMIN (test code = 4.6 G/DL 3.5-5.2 2200) CALC GLOBULIN (test 2.8 G/DL 1.9-3.7 code = 2240) CALC A/G RATIO (test 1.6 RATIO 1.0-2.6 code = 2234) BILIRUBIN, TOTAL 0.5 MG/DL See_Comment [Automated message] (test code = 2207) The syste m which generated this result transmitted ref erence range: <=1.2. T he reference range was not used to int erpret this result as normal/abnormal . ALKALINE PHOSPHATASE 75 U/L 40-113 (test code = 2204) AST (test code = 21 U/L 9-40 2217) ALT (test code = 19 U/L 5-40 UNLE SS 2218) OTHERWISE INDIC ATED, ALL TESTING PER FORMED ATCLINICAL PATH OLOGY [facility]ATOR[facility], [place]. [address] [facility] [place] [place] [address] LABORATORY DIRE CTOR: SHARAD BAXTER M.D. CLIA NUMBER [id number] CAP ACCREDITATION N O. [id number] COMPREHENSIVE METABOLIC [id number] 04:20:31 Test Item Value Reference Range Interpretation Comments GLUCOSE (test code = 102 MG/DL 70-99 H 2216) BUN (test code = 9 MG/DL 6-20 2207) CREATININE (test 0.62 MG/DL 0.60-1.30 EFFECTIVE code = 221) 10/11/2021, [facility] HAS IMPLEMENTED THE NKF-ASN RECOMME NDED KD-EPI EGF R REFIT CALCULATI ON THAT DOES NOT INCLUDE A COEFFICIENT FOR RACE. FOR MORE INFORMATION, SE E ANNOUNCEMENT [email or web address] eGFR (2020 CKD-EPI) 113 >60 (test code = 54755) ML/MIN/1.73 CALC BUN/CREAT (test 15 RATIO 6-28 code = 2235) SODIUM (test code = 140 MEQ/L 296-580 4555) POTASSIUM (test code 3.9 MEQ/L 3.5-5.4 = 2227) CHLORIDE (test code 104 MEQ/L 95-107 = 221) CARBON DIOXIDE (test 23 MEQ/L 19-31 code = 220) CALCIUM (test code = 8.8 MG/DL 8.5-10.5 2208) PROTEIN, TOTAL (test 7.1 G/DL 6.1-8.3 code = 2229) ALBUMIN (test code = 4.4 G/DL 3.5-5.2 2201) CALC GLOBULIN (test 2.7 G/DL 1.9-3.7 code = 2240) CALC A/G RATIO (test 1.6 RATIO 1.0-2.6 code = 2234) BILIRUBIN, TOTAL <0.2 MG/DL See_Comment [Automated message] (test code = 2207) The syste m which generated this result transmit vivian reference range : <=1.2. The refe rence range was not u sed to interpret th is result as normal/abnormal . ALKALINE PHOSPHATASE 89 U/L 40-113 (test code = 2204) AST (test code = 26 U/L 9-40 8) ALT (test code = 26 U/L 5-40 2219) CBC W/AUTO DIFF WITH [id number] 02:55:52 Test Item Value Reference Range Interpretation Comments WBC (test code = 8.8 K/UL 3.5-11.0 1001) RBC (test code = 4.33 M/UL 3.80-5.40 1002) HEMOGLOBIN (test 13.7 G/DL 11.5-15.5 code = 1003) HEMATOCRIT (test 38.5 % 34.0-45.0 code = 1004) MCV (test code = 88.9 fL 80.0-99.0 1005) MCH (test code = 31.6 PG 25.0-33.0 1006) MCHC (test code = 35.6 G/DL 31.0-36.0 1007) RDW (test code = 12.5 % 11.5-15.0 1038) NEUTROPHILS (test 44.9 % NOTE: EFF ECTIVE code = 1008) 09/20/2021, REF ERENCE INTERVALS AND FLAGGING FORREL ATIVE (%) WBC DIFFERE NTIAL WILL BE ELIMINA VIVIAN REDUNDANT TOABS OLUTE COUNTS.SEE [email or web address] _[email or web address]_reporting_ update LYMPHOCYTES (test 46.0 % code = 1010) MONOCYTES (test code 5.8 % = 1011) EOSINOPHILS (test 2.6 % code = 1012) BASOPHILS (test code 0.5 % = 1013) IMMATURE 0.2 % GRANYLOCYTES (test code = 1036) NUCLEATED RBCS (test 0.0 /100 See_Comment [Autom ated message] code = 1065) WBC'S The system whic h generated this result transmitted ref erence range: 0.0. The reference range was not used to int erpret this result as normal/abnormal . PLATELET COUNT (test 289 K/UL 130-400 code = 1015) ABSOLUTE NEUTROPHILS 3.95 K/UL 1.50-7.50 (test code = 1066) ABSOLUTE LYMPHOCYTES 4.05 K/UL 1.00-4.00 H (test code = 1067) ABSOLUTE MONOCYTES 0.51 K/UL 0.20-1.00 (test code = 1068) ABSOLUTE EOSINOPHILS 0.23 K/UL 0.00-0.50 (test code = 1040) ABSOLUTE BASOPHILS 0.04 K/UL 0.00-0.20 (test code = 1069) ABS IMMATURE 0.02 K/UL 0.00-0.10 GRANULOCYTES (test code = 1020) ABS NUCLEATED RBCS 0.02 K/UL 0.00-0.11 UN LESS (test code = 32943) OTHERWIS E INDICATED, ALL TESTING PER FORMED ATCLINICAL PATH OLOGY [facility]. [address] [place] [address] LABORATORY DIRE CTOR: SHARAD BAXTER M.D. CLIA NUMBER [id number] CAP ACCREDITATION N O. [id number] THYROID STIMULATING [id number] 19:51:39 Test Item Value Reference Range Interpretation Comments TSH (test code = See_Comment [Automated message] 8677603137) The system Verold generated this result transmitted ref erence range: 0.45 - 4 .70 mIU/L. The refe rence range was not u sed to interpret this result as normal/abnor mal. Lab Interpretation (test Normal code = 62422-4) [facility] (03844)(TOTAL CHOLESTEROL, TRIGLYCERIDES, HDL)2021-08-03 11:17:07 Test Item Value Reference Range Interpretation Comments CHOL (test code = 166 mg/dL 120-200 7406987022) HDL (test code = 29 mg/dL >50 L 9418135126) HDLC RATIO (test code = See_Comment H [Au tomated message] 0430760729) The system Verold generated this result transmit vivian reference range : <=4.5. The refe rence range was not u sed to interpret th is result as normal/abnormal . TRIG (test code = 159 mg/dL 30-170 3369706039) LDL CHOL (test code = 105 mg/dL See_Comment [Auto mated message] 82680-9) The system Verold generated this result transmit vivian reference range : <=160. The refe rence range was not u sed to interpret th is result as normal/abnormal . VLDL (test code = 32 mg/dL 5-60 8183709540) Lab Interpretation (test Abnormal code = 79533-4) [facility] [id number] 10:28:19 Test Item Value Reference Interpretation Comments Range TROPONIN I (test 0.009 ng/mL See_Comment [Automated code = 5779363284) message] The system which generated this result transmitted reference range : <=0.034. The reference range was not used to interpret this result as normal/abnormal . ROBERTA (test code = Reference (Normal) ROBERTA) Range (defined by the 99th percentile reference limit): <= 0.034 ng/mL Note: Cardiac troponin begins to rise 3-4 hours after the onset of ischemia. Repeat in 4-6 hours if the sample was drawn within 3-4 hours of the onset of the symptom and found normal. Diagnosis of myocardial injury is made with acute changes in cTn concentrations with at least one serial sample above the 99th percentile upper reference limit (URL), taken together with the patient's clinical presentation. Biotin has been reported to cause a negative bias, interpret results relative to patient's use of biotin. Lab Interpretation Normal (test code = 25145-4) [facility] [id number] 08:24:25 Test Item Value Reference Interpretation Comments Range TROPONIN I (test 0.001 ng/mL See_Comment [Automated code = 4943344425) message] The system which generated this result transmitted reference range : <=0.034. The reference range was not used to interpret this result as normal/abnormal . ROBERTA (test code = Reference (Normal) ROBERTA) Range (defined by the 99th percentile reference limit): <= 0.034 ng/mL Note: Cardiac troponin begins to rise 3-4 hours after the onset of ischemia. Repeat in 4-6 hours if the sample was drawn within 3-4 hours of the onset of the symptom and found normal. Diagnosis of myocardial injury is made with acute changes in cTn concentrations with at least one serial sample above the 99th percentile upper reference limit (URL), taken together with the patient's clinical presentation. Biotin has been reported to cause a negative bias, interpret results relative to patient's use of biotin. Lab Interpretation Normal (test code = 50658-9) [facility] [id number] 08:21:04 Test Item Value Reference Range Interpretation Comments NT-proBNP (test code 35 pg/mL See_Comment [Autom ated = 3025022402) message] The system which generated this result transmitted reference range : <=125. The reference range was not used to interpret this result as normal/abnormal . ROBERTA (test code = ROBERTA) Biotin has been reported to cause a negative bias, interpret results relative to patient's use of biotin. Lab Interpretation Normal (test code = 09926-5) [facility]OLIC PANEL (02341)2021-08-03 08:12:46 Test Item Value Reference Range Interpretation Comments NA (test code = 140 mmol/L 135-145 9959630385) K (test code = 3.6 mmol/L 3.5-5.0 1820997231) CL (test code = 108 mmol/L 98-108 1608724746) CO2 TOTAL (test code = 25 mmol/L 23-31 4604269410) AGAP (test code = 2-16 8012187483) BUN (test code = 17 mg/dL 7-23 4434556666) GLUCOSE (test code = 107 mg/dL 70-110 5431196816) CREATININE (test code = 0.61 mg/dL 0.50-1.04 0198424554) TOTAL BILI (test code = 0.5 mg/dL 0.1-1.2 5327910526) CALCIUM (test code = 9.6 mg/dL 8.6-10.6 2984662627) T PROTEIN (test code = 7.6 g/dL 6.3-8.2 0583372189) ALBUMIN (test code = 4.5 g/dL 3.5-5.0 6145719779) ALK PHOS (test code = 88 U/L 34-122 1656706908) ALTv (test code = 49 U/L 5-35 H 1742-6) AST(SGOT) (test code = 40 U/L 13-40 0081148792) eGFR (test code = mL/min/1.73m2 4208691137) ROBERTA (test code = ROBERTA) Association of Glomerular Filtration Rate (GFR) and Staging of Kidney Disease* + --+ --+ ------+| GFR (mL/min/1.73 m2) ?| With Kidney Damage ?| ?Without Kidney Damage+ --------+ --------+ +| ?>90 ?| ?Stage one ?| ? Normal ?+ ---+ ---+ -------+| ?60-89 ?| ?Stage two ?| ? Decreased GFR ? + --+ --+ ------+| ?30-59 ?| ?Stage three ?| ? Stage three ? + --+ --+ ------+| ?15-29 ?| ?Stage four ? | ? Stage four ?+ ---+ ---+ -------+| ?<15 (or dialysis) ? ?| ?Stage five ? | ? Stage five ?+ ---+ ---+ -------+ *Each stage assumes the associated GFR level has been in effect for at least three months. ?Stages 1 to 5, with or without kidney disease, indicate chronic kidney disease. Notes: Determination of stages one and two (with eGFR >59mL/min/1.73 m2) requires estimation of kidney damage for at least three months as defined by structural or functional abnormalities of the kidney, manifested by either:Pathological abnormalities or Markers of kidney damage (including abnormalities in the composition of the blood or urine or abnormalities in imaging tests). Lab Interpretation Abnormal (test code = 77613-1) [facility] WITH [id number] 07:57:44 Test Item Value Reference Range Interpretation Comments WBC (test code = See_Comment H [Automated 5900-2) message] The sy stem which generated this result transmitted reference range : 4.30 - 11.10 10*3/?L. The reference range was not used to interpret this result as normal/abnormal . RBC (test code = See_Comment [Automated 949-8) message] The sy stem which generated this result transmitted reference range : 3.93 - 5.25 10*6/?L. The reference range was not used to interpret this result as normal/abnormal . HGB (test code = 13.1 g/dL 11.6-15.0 718-7) HCT (test code = 37.3 % 35.7-45.2 4544-3) MCV (test code = 87.8 fL 80.6-95.5 787-2) MCH (test code = 30.8 pg 25.9-32.8 785-6) MCHC (test code = 35.1 g/dL 31.6-35.1 786-4) RDW-SD (test code = 39.8 fL 39.0-49.9 64063-5) RDW-CV (test code = 12.6 % 12.0-15.5 788-0) PLT (test code = See_Comment [Automated 777-3) message] The sy stem which generated this result transmitted reference range : 166 - 358 10*3/ ?L. The reference r maria eugenia was not used to interpret this result as normal/abnormal . MPV (test code = 9.7 fL 9.5-12.9 59309-6) NRBC/100 WBC (test See_Comment [Automat ed code = 9203499395) message] The system which generated this result transmitted reference range : 0.0 - 10.0 /100 WBCs. The refer ence range was not u sed to interpret th is result as normal/abnormal . NRBC x10^3 (test code <0.01 See_Comment [Auto mated = 6515673353) message] The s ystem which generated this result transmitted reference range : 10*3/?L. The reference range was not used to interpret this result as normal/abnormal . GRAN MAT (NEUT) % 58.9 % (test code = 770-8) IMM GRAN % (test code 0.80 % = 4160573578) LYMPH % (test code = 32.7 % 736-9) MONO % (test code = 6.0 % 5905-5) EOS % (test code = 1.2 % 713-8) BASO % (test code = 0.4 % 706-2) GRAN MAT x10^3(ANC) 7.01 10*3/uL 1.88-7.09 (test code = 6488460545) IMM GRAN x10^3 (test 0.10 10*3/uL 0.00-0.06 H code = 2191323878) LYMPH x10^3 (test code 3.89 10*3/uL 1.32-3.29 H = 731-0) MONO x10^3 (test code 0.71 10*3/uL 0.33-0.92 = 742-7) EOS x10^3 (test code = 0.14 10*3/uL 0.03-0.39 711-2) BASO x10^3 (test code 0.05 10*3/uL 0.01-0.07 = 704-7) Lab Interpretation Abnormal (test code = 51822-6) [facility] Metabolic [id number] 06:05:00 Test Item Value Reference Range Interpretation Comments NA (test code = 138 mmol/L 135-145 0807437715) K (test code = 3.4 mmol/L 3.5-5 L 7027848730) CL (test code = 106 mmol/L 98-108 1376306494) CO2 TOTAL (test code = 24 mmol/L 23-31 5606178912) AGAP (test code = 2-16 5520087745) BUN (test code = 12 mg/dL 7-23 3356922380) GLUCOSE (test code = 111 mg/dL 70-110 H 9985645609) CREATININE (test code = 0.66 mg/dL 0.5-1.04 1587071308) TOTAL BILI (test code = 0.5 mg/dL 0.1-1.5 2338020881) CALCIUM (test code = 9.1 mg/dL 8.6-10.6 7593809604) T PROTEIN (test code = 7.4 g/dL 6.3-8.2 8787389186) ALBUMIN (test code = 4.3 g/dL 3.5-5 8923558789) ALK PHOS (test code = 68 U/L 34-122 6750605769) ALTv (test code = 24 U/L 5-35 1742-6) AST(SGOT) (test code = 45 U/L 13-40 H 6544117415) eGFR Calculation mL/min/1.73m2 (Non-) (test code = 0701480821) eGFR Calculation mL/min/1.73m2 () (test code = 0867130866) ROBERTA (test code = ROBERTA) Association of Glomerular Filtration Rate (GFR) and Staging of Kidney Disease* + --+ --+ ------+| GFR (mL/min/1.73 m2) ?| With Kidney Damage ?| ?Without Kidney Damage+ --------+ --------+ +| ?>90 ?| ?Stage one ?| ? Normal ?+ ---+ ---+ -------+| ?60-89 ?| ?Stage two ?| ? Decreased GFR ? + --+ --+ ------+| ?30-59 ?| ?Stage three ?| ? Stage three ? + --+ --+ ------+| ?15-29 ?| ?Stage four ? | ? Stage four ?+ ---+ ---+ -------+| ?<15 (or dialysis) ? ?| ?Stage five ? | ? Stage five ?+ ---+ ---+ -------+ *Each stage assumes the associated GFR level has been in effect for at least three months. ?Stages 1 to 5, with or without kidney disease, indicate chronic kidney disease. Notes: Determination of stages one and two (with eGFR >59mL/min/1.73 m2) requires estimation of kidney damage for at least three months as defined by structural or functional abnormalities of the kidney, manifested by either:Pathological abnormalities or Markers of kidney damage (including abnormalities in the composition of the blood or urine or abnormalities in imaging tests). Lab Interpretation Abnormal (test code = 56502-1) [facility] CenterLip[facility], [id number] 06:05:00 Test Item Value Reference Range Interpretation Comments LIPASE (test code = 8385136399) 73 U/L 0-220 Lab Interpretation (test code = Normal 50796-9) [facility] CenterUrinalysis2020-06-13 05:54:00 Test Item Value Reference Range Interpretation Comments APPEARANCE (test code = Hazy Clear A 4088631538) COLOR (test code = Yellow Yellow 7614225945) PH (test code = 4.8-8.0 5668695842) SP GRAVITY (test code = 1.003-1.030 7871539620) GLU U QUAL (test code = Normal Normal 1076421525) BLOOD (test code = 1+ Negative A 3550005646) KETONES (test code = Negative Negative 9109194748) PROTEIN (test code = Negative Negative 2887-8) UROBILIN (test code = Normal Normal 9449491976) BILIRUBIN (test code = Negative Negative 0697019645) NITRITE (test code = Negative Negative 1057279103) LEUK MARIANNE (test code = 250/uL Negative A 0096758991) RBC/HPF (test code = See_Comment H [Autom ated message] 6977113750) The system Verold generated this result transmitted ref erence range: 0 - 3 HP F. The reference range was not used to int erpret this result as normal/abnormal . WBC/HPF (test code = See_Comment H [Autom ated message] 1498487548) The system Verold generated this result transmitted ref erence range: 0 - 5 HP F. The reference range was not used to int erpret this result as normal/abnormal . BACTERIA (test code = Moderate Negative A 1804319606) MUCOUS (test code = Moderate Negative LPF A 2184985955) SQ EPITH (test code = HPF 4815917509) Lab Interpretation (test Abnormal code = 15338-4) [facility] WITH [id number] 05:45:00 Test Item Value Reference Range Interpretation Comments WBC (test code = See_Comment [Automated 3290-2) message] The sy stem which generated this result transmitted reference range : 4.30 - 11.10 10*3/?L. The reference range was not used to interpret this result as normal/abnormal . RBC (test code = See_Comment [Automated 729-8) message] The sy stem which generated this result transmitted reference range : 3.93 - 5.25 10*6/?L. The reference range was not used to interpret this result as normal/abnormal . HGB (test code = 12.5 g/dL 11.6-15 718-7) HCT (test code = 34.9 % 35.7-45.2 L 4544-3) MCV (test code = 87.3 fL 80.6-95.5 787-2) MCH (test code = 31.3 pg 25.9-32.8 785-6) MCHC (test code = 35.8 g/dL 31.6-35.1 H 786-4) RDW-SD (test code = 42.0 fL 39-49.9 12117-4) RDW-CV (test code = 13.2 % 12-15.5 788-0) PLT (test code = See_Comment [Automated 777-3) message] The sy stem which generated this result transmitted reference range : 166 - 358 10*3/ ?L. The reference r maria eugenia was not used to interpret this result as normal/abnormal . MPV (test code = 9.5 fL 9.5-12.9 88705-8) NRBC/100 WBC (test See_Comment [Automat ed code = 2917434883) message] The system which generated this result transmitted reference range : 0.0 - 10.0 /100 WBCs. The refer ence range was not u sed to interpret th is result as normal/abnormal . NRBC x10^3 (test code See_Comment [Auto mated = 9139961757) message] The s ystem which generated this result transmitted reference range : 10*3/?L. The reference range was not used to interpret this result as normal/abnormal . GRAN MAT (NEUT) % 56.0 % (test code = 770-8) IMM GRAN % (test code 0.40 % = 9801171944) LYMPH % (test code = 36.2 % 736-9) MONO % (test code = 5.5 % 5905-5) EOS % (test code = 1.5 % 713-8) BASO % (test code = 0.4 % 706-2) GRAN MAT x10^3(ANC) 5.66 10*3/uL 1.88-7.09 (test code = 4657435155) IMM GRAN x10^3 (test 0.04 10*3/uL 0-0.06 code = 1973268316) LYMPH x10^3 (test code 3.66 10*3/uL 1.32-3.29 H = 731-0) MONO x10^3 (test code 0.56 10*3/uL 0.33-0.92 = 742-7) EOS x10^3 (test code = 0.15 10*3/uL 0.03-0.39 711-2) BASO x10^3 (test code 0.04 10*3/uL 0.01-0.07 = 704-7) Lab Interpretation Abnormal (test code = 36345-7) [facility]"
[2022-03-02 22:55] LABS: Urine Blood 2+ (Negative); Urine Glucose Negative (Negative); Urine Protein 2+ (Negative); Urine Specific Gravity >=1.030 (1.005-1.030)
[2022-03-02] MEDS ORDERED: IBUPROFEN 400 MG TAB ONE (23:02)
[2022-03-02] MEDS ORDERED: ONDANSETRON 4 MG (ODT) TAB ONE (23:02)
--- NOTE | 2022-03-02 23:38 | ER ---
Nurse's Notes [facility] Name: Alida Dupree Age: 41 yrs Sex: Female : 1980 Arrival Date: 03/02/2022 Time: 22:28 Bed 16 Private MD: Diagnosis: UTI/ Urinary tract infection, site not specified;Nausea Presentation: 03/02 22:46 Chief complaint: Patient states: For the past week pt has been experiencing burning ll3 pain with urination and urinary frequency, states been taking over the counter UTI meds but says she feels like its getting worse. Coronavirus screen: Vaccine status: Patient reports receiving the 1st dose of the Covid vaccine. At this time, the client does not indicate any symptoms associated with coronavirus-19. Ebola Screen: No symptoms or risks identified at this time. Initial Sepsis Screen: Does the patient meet any 2 criteria? No. Patient's initial sepsis screen is negative. Does the patient have a suspected source of infection? No. Patient's initial sepsis screen is negative. Risk Assessment: Do you want to hurt yourself or someone else? Patient reports no desire to harm self or others. Onset of symptoms was February 23, 2022. 22:46 Method Of Arrival: Ambulatory ll3 22:46 Acuity: REEMA 3 ll3 Triage Assessment: 22:49 General: Appears uncomfortable, Behavior is calm, cooperative. Pain: Complains of pain ll3 in groin Pain currently is 10 out of 10 on a pain scale. Quality of pain is described as burning, Pain began 1 week ago Is continuous. : Reports burning with urination, pain with urination, urgency, urinary frequency. Derm: Skin is pink, warm \T\ dry. 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 - Social history:: Smoking status: Patient reports the use of cigarette tobacco products, smokes one pack cigarettes per day. Screenin:54 Abuse screen: Denies threats or abuse. Nutritional screening: No deficits noted. ll3 Tuberculosis screening: No symptoms or risk factors identified. 23:55 Fall Risk None identified. ll3 Assessment: 22:54 General: See triage assessment.. ll3 Vital Signs: 22:46 BP 127 / 87; Pulse 78; Resp 16; Temp 98.4(TE); Pulse Ox 98% on R/A; Weight 72.57 kg ll3 (R); Height 5 ft. 2 in. (157.48 cm) (R); Pain 10/10; 22:46 Body Mass Index 29.26 (72.57 kg, 157.48 cm) ll3 ED Course: 22:28 Patient arrived in ED. ja2 22:29 Everette Barnes PA is PHCP. cp 22:29 Bashir Reyes MD is Attending Physician. cp 22:46 Teresa Alcaraz RN is Primary Nurse. ll3 22:49 Triage completed. ll3 22:49 Arm band placed on Patient placed in an exam room, on a stretcher, on pulse oximetry. ll3 22:54 Patient has correct armband on for positive identification. Bed in low position. Call ll3 light in reach. Side rails up X 1. Pulse ox on. 23:55 No provider procedures requiring assistance completed. Patient did not have IV access ll3 during this emergency room visit. Administered Medications: 23:01 Drug: Ibuprofen 800 mg Route: PO; ll3 23:49 Follow up: Response: No adverse reaction ll3 23:02 Drug: Zofran (Ondansetron) 4 mg Route: PO; ll3 23:49 Follow up: Response: No adverse reaction ll3 23:49 Drug: Rocephin (cefTRIAXone) 1 grams Route: IM; Site: right gluteus; ll3 03/03 00:01 Follow up: Response: No adverse reaction ll3 Outcome: 03/02 23:38 Discharge ordered by . jessica 03/03 00:01 Discharged to home ambulatory. ll3 Condition: stable Discharge instructions given to patient, Instructed on discharge instructions, follow up and referral plans. medication usage, Demonstrated understanding of instructions, follow-up care, medications, Prescriptions given X 3. 00:01 Patient left the ED. ll3 Signatures: Everette Barnes PA PA cp Alexander, Jessica ja2 Loubet, Lynsea, RN RN ll3
--- NOTE | 2022-03-02 23:39 | EDPHYS ---
Physician Documentation [facility] Name: Alida Dupree Age: 41 yrs Sex: Female : 1980 Arrival Date: 03/02/2022 Time: 22:28 Bed 16 Private MD: ED Physician Bashir Reyes HPI: 03/02 22:50 This 41 yrs old Female presents to ER via Ambulatory with complaints of Urinary Problem.cp 22:50 The patient presents with urinary symptoms, dysuria, frequency, hematuria. cp 22:50 Onset: The symptoms/episode began/occurred 1 week(s) ago. Associated signs and cp symptoms: Pertinent positives: suprapubic pain, Pertinent negatives: constipation, diarrhea, fever, vaginal bleeding, vaginal discharge, back pain. Severity of symptoms: in the emergency department the symptoms are unchanged, despite use of OTC meds for UTI and previously prescribed metronidazole. 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 - Social history:: Smoking status: Patient reports the use of cigarette tobacco products, smokes one pack cigarettes per day. ROS: 22:55 Constitutional: Negative for body aches, chills, fever, poor PO intake. cp 22:55 Eyes: Negative for injury, pain, redness, and discharge. cp 22:55 ENT: Negative for drainage from ear(s), ear pain, sore throat, difficulty swallowing, difficulty handling secretions. 22:55 Cardiovascular: Negative for chest pain, palpitations. 22:55 Respiratory: Negative for cough, shortness of breath, wheezing. 22:55 Abdomen/GI: Positive for abdominal pain, nausea, of the suprapubic area, Negative for vomiting, diarrhea, constipation. 22:55 Back: Negative for pain at rest, pain with movement. 22:55 Neuro: Negative for altered mental status, headache, weakness. 22:55 All other systems are negative. Exam: 23:00 Constitutional: The patient appears in no acute distress, alert, awake, non-toxic, well cp developed, well nourished, uncomfortable. 23:00 Head/Face: Normocephalic, atraumatic. cp 23:00 Eyes: Periorbital structures: appear normal, Conjunctiva: normal, no exudate, no injection, Sclera: no appreciated abnormality, Lids and lashes: appear normal, bilaterally. 23:00 ENT: External ear(s): are unremarkable, Nose: is normal, Mouth: Lips: moist, Oral mucosa: moist, Posterior pharynx: Airway: no evidence of obstruction, patent. 23:00 Chest/axilla: Inspection: normal. 23:00 Cardiovascular: Rate: normal. 23:00 Respiratory: the patient does not display signs of respiratory distress, Respirations: normal, no use of accessory muscles, no retractions, labored breathing, is not present. 23:00 Abdomen/GI: Inspection: abdomen appears normal, Palpation: soft, in all quadrants, moderate abdominal tenderness, in the suprapubic area, rebound tenderness, is not appreciated, involuntary guarding, is not appreciated. 23:00 Back: CVA tenderness, is absent. 23:00 Neuro: Orientation: to person, place \T\ time. Mentation: is normal, Motor: moves all fours, strength is normal, Sensation: is normal. Vital Signs: 22:46 BP 127 / 87; Pulse 78; Resp 16; Temp 98.4(TE); Pulse Ox 98% on R/A; Weight 72.57 kg ll3 (R); Height 5 ft. 2 in. (157.48 cm) (R); Pain 10/10; 22:46 Body Mass Index 29.26 (72.57 kg, 157.48 cm) ll3 MDM: 22:45 Patient medically screened. cp 23:00 Differential diagnosis: kidney stone, pelvic inflammatory disease, urinary tract cp infection, vaginosis, pyelonephritis, sepsis. 23:37 Data reviewed: vital signs, nurses notes, lab test result(s). cp 23:37 Counseling: I had a detailed discussion with the patient and/or guardian regarding: the cp historical points, exam findings, and any diagnostic results supporting the discharge/admit diagnosis, lab results, the need for outpatient follow up, a family practitioner, to return to the emergency department if symptoms worsen or persist or if there are any questions or concerns that arise at home. Response to treatment: the patient's symptoms have markedly improved after treatment, and as a result, I will discharge patient. 03/02 22:51 Order name: Urine Microscopic Only cp 03/02 22:55 Order name: Urine Dipstick-Ancillary; Complete Time: 23:34 EDRI 03/02 23:34 Interpretation: Reviewed. 03/02 23:51 Order name: Urine Culture EDRI 03/02 22:51 Order name: Urine Test (obtain specimen); Complete Time: 22:57 cp 03/02 22:51 Order name: Urine Dipstick-Ancillary (obtain specimen); Complete Time: 22:58 cp Administered Medications: 23:01 Drug: Ibuprofen 800 mg Route: PO; ll3 23:49 Follow up: Response: No adverse reaction ll3 23:02 Drug: Zofran (Ondansetron) 4 mg Route: PO; ll3 23:49 Follow up: Response: No adverse reaction ll3 23:49 Drug: Rocephin (cefTRIAXone) 1 grams Route: IM; Site: right gluteus; ll3 03/03 00:01 Follow up: Response: No adverse reaction ll3 Disposition: 00:29 Co-signature as Attending Physician, Bashri Reyes MD I agree with the assessment and kdr plan of care. Disposition Summary: 03/02/22 23:38 Discharge Ordered Location: Home cp Problem: new cp Symptoms: have improved cp Condition: Stable cp Diagnosis - UTI/ Urinary tract infection, site not specified cp - Nausea cp Followup: cp - With: Private Physician - When: 1 - 2 days - Reason: Worsening of condition Discharge Instructions: - Discharge Summary Sheet cp - Nausea, Adult cp - Urinary Tract Infection, Adult cp Forms: - Medication Reconciliation Form cp - Thank You Letter cp - Antibiotic Education cp - Prescription Opioid Use cp Prescriptions: - Augmentin 875-125 mg Oral Tablet - take 1 tablet by ORAL route every 12 hours for 7 days; 14 tablet; Refills: 0, cp Product Selection Permitted - Pyridium 200 mg Oral Tablet - take 1 tablet by ORAL route every 8 hours for 2 days; 6 tablet; Refills: 0, cp Product Selection Permitted - Zofran 4 mg Oral Tablet - take 1 tablet by ORAL route every 12 hours As needed; 20 tablet; Refills: 0, cp Product Selection Permitted Signatures: Dispatcher [employer] Bashir Harris MD MD kdr Page, Corey, PA PA cp Loubet, Lynsea RN RN ll3
[2022-03-02] MEDS ORDERED: CEFTRIAXONE 1000 MG/VIAL ONE (23:45)
[2022-03-02] MEDS ORDERED: LIDOCAINE 1% MPF 2 ML AMPULE ONE (23:46)
[2022-03-02 23:48] LABS: Urine Bacteria <20 /HPF (<20); Urine Urothelial Cells <5 /HPF (NONE SEEN)
[2022-03-03 00:43] VITALS: BP 127/87; TEMP 98.4; O2SAT 98
== END 2022-03-03 00:01 | disposition home or self-care (01) ==
LOC: ER 22:24
DX: N39.0 Urinary tract infection, site not specified (principal); R31.9 Hematuria, unspecified; R11.0 Nausea; I10 Essential (primary) hypertension; E03.9 Hypothyroidism, unspecified; F17.210 Nicotine dependence, cigarettes, uncomplicated; Z88.1 Allergy status to other antibiotic agents; Z88.5 Allergy status to narcotic agent; Z88.6 Allergy status to analgesic agent; Z88.8 Allergy status to other drugs, medicaments and biological substances
CPT/HCPCS: 81003; 81015; 87086; 87088; 96372; 99283